=== PATIENT | male | born 1970 | race Caucasian/White ===

== ENCOUNTER 2018-08-27 06:10 | Day surgery (SDC) | payer OTHER ==
[2018-08-24 11:55] VITALS: BMI 23.1
[2018-08-27] MEDS ORDERED: ROPIVACAINE HCL 0.5% 30ML VIAL ONE (07:04)
[2018-08-27] MEDS ORDERED: MIDAZOLAM HCL 2 MG/2 ML SINGLE DOSE VIAL ONE ×3 (07:04→07:17)
[2018-08-27] MEDS ORDERED: BUPIVACAINE HCL/EPINEPHRINE/PF 30 ML VIAL IJ ONE (07:05)
[2018-08-27] MEDS ORDERED: PROPOFOL 20 ML ONE ×3 (07:17→08:28)
[2018-08-27] MEDS ORDERED: SUCCINYLCHOLINE CHLORIDE 200 MG/10 ML VIAL ONE (07:17)
[2018-08-27] MEDS ORDERED: ceFAZolin SODIUM 1 GM VIAL ONE (07:18)
[2018-08-27] MEDS ORDERED: ONDANSETRON 4 MG/2 ML VIAL ONE ×2 (07:18→08:57)
[2018-08-27] MEDS ORDERED: DEXAMETHASONE SOD PHOSPHATE 4 MG/1 ML VIAL ONE ×2 (07:18→09:03)
[2018-08-27] MEDS ORDERED: LIDOCAINE HCL 2% JELLY (5 ML/TUBE) ONE (08:25)
--- NOTE | 2018-08-27 08:50 | DS ---
Physical Examination Vital Signs: Vital Signs Temperature 98.1 F 08/27/18 06:31 Pulse Rate 46 L 08/27/18 06:31 Respiratory Rate 16 08/27/18 06:31 Blood Pressure 114/74 08/27/18 06:31 O2 Sat by Pulse Oximetry (%) 96 08/27/18 06:37 Discharge Summary Reason For Visit: MEDIAL MENISCAL TEAR/FEMORAL CONDYLE DEFECT Condition: Good - Instructions Diet, Activity, Other Instructions: Post Operative Instructions: Knee Arthroscopy Dr Jim Boykin 1. Pain following an arthroscopy is variable. Some patients will have more pain than others. You have been provided with a prescription for medication that contains a narcotic. You are not allowed to drive while on this medication. You should NOT take Tylenol (Acetaminophen) when taking the pain medication ( it will result in an overdose).You can take Tylenol with an anti-inflammatory if you are not taking the pain medication. Feel free to take medications such as Ibuprofen or Naprosyn in addition to the pain medicine if you do not have any problems with the NSAID class of medications. 2. You are allowed to remove the bandages and shower in 24 hours. You are not allowed to bathe or go swimming until the incisions are checked in our office. Put band-aids on the incision after your shower and do not put any creams or lotions over the incisions. 3. You are allowed to put all your weight on the leg and bend your knee. 4. Apply ice to the knee for 15 min every hour or so. You may continue this for as many days as you like. 5. Please call the office to schedule a visit to have your sutures removed. 6. If for any reason you believe you may have an infection or are concerned, please feel free to call me. I can be reached through our office number 24 hours a day. 7. Please call our office with any questions; we will review the surgical findings during your post operative visit. Disposition: HOME - Home Medications Comprehensive Discharge Medication List: Ambulatory Orders NK [No Known Home Medication] 08/24/18
--- NOTE | 2018-08-27 08:50 | OP ---
Operative Note - Note: Operative Date: 08/27/18 Pre-Operative Diagnosis: left knee MMT/LMT Operation: LKA, PMM, PLM Post-Operative Diagnosis: Same as Pre-op Surgeon: Jim Boykin Anesthesiologist/LOGISTICS ASSISTANT: Edison Urrutia Anesthesia: General Operative Report Dictated: Yes
[2018-08-27] MEDS ORDERED: DEXAMETHASONE SOD PHOSPHATE 4 MG/1 ML VIAL IVPUSH ONE (08:58)
[2018-08-27] MEDS ORDERED: oxyCODONE HCL 5 MG TABLET PO PRN ×2 (08:58)
[2018-08-27] MEDS ORDERED: ONDANSETRON 4 MG/2 ML VIAL IVPUSH PRN (08:58)
[2018-08-27] MEDS ORDERED: LACTATED RINGERS SOLUTION 1,000 ML IV SCH (09:00)
[2018-08-27 09:39] VITALS: PULSE 44; TEMP 97.7
[2018-08-27 10:32] VITALS: BP 128/74
--- NOTE | 2018-09-01 16:33 | PATH ---
Surgical Pathology Report Patient Name: XI ESTES [facility]. Rec. #: [id number] /Age/Gender: 1970 (Age: 48) / M Account: [id number] Location: [facility] Taken: 08/27/2018 Received: 08/27/2018 Reported: 09/01/2018 Physicians: Jim Boykin M.D. Specimen(s) Received SHAVINGS LEFT KNEE Clinical History Left medial meniscus tear Final Diagnosis KNEE, LEFT, ARTHROSCOPIC SHAVINGS: FIBROSYNOVIAL TISSUE AND CARTILAGE. Electronically Signed Sally Begum M.D. Gross Description Received in formalin, labeled "left knee shavings," is a 3.5 x 3.0 x 0.3 cm. aggregate of cassidy-yellow soft tissue fragments. A commercial pest control representative portion is submitted in one cassette. /08/30/201808/30/2018
== END 2018-08-27 10:40 | disposition home or self-care (01) ==
LOC: FASU 06:10
PROVIDERS: ATTEND Orthopaedic Surgery
PROC: 0SBD4ZZ Excision of Left Knee Joint, Percutaneous Endoscopic Approach (ICD-10-PCS; 2018-08-27)
PROC: 0SBD4ZZ Excision of Left Knee Joint, Percutaneous Endoscopic Approach (ICD-10-PCS; principal; 2018-08-27 08:20)
DX: S83.242A Other tear of medial meniscus, current injury, left knee, initial encounter (principal); S83.282A Other tear of lateral meniscus, current injury, left knee, initial encounter; M65.862 Other synovitis and tenosynovitis, left lower leg; X58.XXXA Exposure to other specified factors, initial encounter; Y93.89 Activity, other specified; Y92.89 Other specified places as the place of occurrence of the external cause
CPT/HCPCS: 88304-TC; 94760